=== PATIENT | male | born 1985 | race American Indian/Alaskan Native ===

== ENCOUNTER 2017-10-01 05:03 | Emergency (ER) | payer OTHER ==
[2017-10-01 06:40] LABS: Basophils # (Auto) 0.1 K/mm3 (0.0-0.1); Basophils % (Auto) 0.5 % (0.0-1.8); Eosinophils # (Auto) 0.1 K/mm3 (0.0-0.4); Eosinophils % (Auto) 0.6 % (0.0-4.3); Hematocrit 46.6 % (35.5-45.6); Hemoglobin 15.6 gm/dl (11.8-15.2); Lymphocytes # (Auto) 1.6 K/mm3 (1.2-5.4); Mean Corpuscular HGB Conc 34 % (32-34); Mean Corpuscular Hemoglobin 31 pg (28-32); Mean Corpuscular Volume 92 fl (84-94); Monocytes # (Auto) 0.5 K/mm3 (0.0-0.8); Monocytes % (Auto) 4.3 % (0.0-7.3); Platelet Count 158 K/mm3 (140-440); Red Blood Count 5.06 M/mm3 (3.65-5.03); Red Cell Distribution Width 13.4 % (13.2-15.2)
[2017-10-01 06:58] LABS: Alanine Aminotransferase 38 units/L (7-56); Albumin 4.6 g/dL (3.9-5); BUN/Creatinine Ratio 11; Blood Urea Nitrogen 11 mg/dL (9-20); Hemolysis Index 23; Lipase 23 units/L (13-60)
[2017-10-01 07:43] LABS: Bilirubin,Urine NEG (Negative); Blood,Urine NEG (Negative); Color,Urine Yellow (Yellow); Mucus,Urine FEW /HPF; Urobilinogen,Urine < 2.0 mg/dL (<2.0)
[2017-10-01] MEDS ORDERED: MORPHINE IV ONE (11:01)
[2017-10-01] MEDS ORDERED: ZOFRAN IV ONE (11:01)
[2017-10-01] MEDS ORDERED: NACL 0.9% 1000 ML 1,000 ML ONE (11:38)
[2017-10-01] MEDS ORDERED: NACL 0.9% 1000 ML 1,000 ML IV ONE (11:56)
[2017-10-01] MEDS ORDERED: REGLAN IV ONE (12:18)
[2017-10-01] MEDS ORDERED: PEPCID IV ONE (12:18)
--- NOTE | 2017-10-01 12:23 | Emergency Department Report ---
HPI - General Chief Complaint: Abdominal Pain Time Seen by Provider: 10/01/17 11:11 - HPI HPI: Room 4 The patient is a 32-year-old male presenting with a chief complaint abdominal pain. The patient states last night he ate some "blue [place] ice cream" approximately one hour later he developed midepigastric cramping pain that has been constant in nature. Patient states she's had multiple episodes of nausea vomiting in addition to diarrhea. Patient admits to subjective fever. Patient denies any recent antibiotic use. The patient states his pain was an 8-9/10 upon arrival to the ED and is currently a 5-6/10 after receiving pain medication and antiemetics. Location: Gastrointestinal system Duration: Constant since last night Quality:. Cramping Severity: [See above] Modifying factors: [see above] Context: [see above] Mode of transportation: [not driving] ED Past Medical Hx - Past Medical History Previous Medical History?: No Hx Asthma: Yes - Surgical History Past Surgical History?: Yes Additional Surgical History: L femur sx-"a matthew and 2 2015" - Family History Family history: no significant - Social History Smoking Status: Current Every Day Smoker (08/03 pack per day) Substance Use Type: Alcohol (rarely), Marijuana - Medications Home Medications: Home Medications Medication Instructions Recorded Confirmed Last Taken Type Ciprofloxacin HCl [Ciprofloxacin 500 mg PO Q12H #14 tab 10/01/17 Unknown Rx TAB] Famotidine [Pepcid] 20 mg PO BID #20 tablet 10/01/17 Unknown Rx HYDROcodone/APAP 5-325 [[place] 1 - 2 each PO Q6HR PRN #14 tablet 10/01/17 Unknown Rx 5/325] Promethazine [Phenergan TAB] 25 mg PO Q6HR PRN #20 tab 10/01/17 Unknown Rx Promethazine [Phenergan] 25 mg [place] Q6HR PRN #5 supp.rect 10/01/17 Unknown Rx ED Review of Systems ROS: Stated complaint: ABD PAIN; N/V Other details as noted in HPI Constitutional: fever Gastrointestinal: abdominal pain, nausea, vomiting, diarrhea Musculoskeletal: denies: back pain Physical Exam - Physical Exam Vital Signs: Vital Signs 10/01/17 10/01/17 05:49 05:58 Temperature 97.6 F 97.6 F Pulse Rate 58 L 59 L Respiratory 16 16 Rate Blood Pressure 182/104 182/104 O2 Sat by Pulse 100 100 Oximetry Physical Exam: GENERAL: The patient is well-developed well-nourished male lying on stretcher appearing to be in mild discomfort. [] HEENT: Normocephalic. Atraumatic. Extraocular motions are intact. Patient has moist mucous membranes. NECK: Supple. Trachea midline CHEST/LUNGS: Clear to auscultation. There is no respiratory distress noted. HEART/CARDIOVASCULAR: Regular. There is no tachycardia. There is no gallop rub or murmur. ABDOMEN: Abdomen is soft, with discomfort to palpation in the midepigastric and left upper quadrant. Patient has normal bowel sounds. There is no abdominal distention. There is no rebound or guarding SKIN: There is no rash. There is no edema. There is no diaphoresis. NEURO: The patient is awake, alert, and oriented. The patient is cooperative. The patient has normal speech MUSCULOSKELETAL: There is no evidence of acute injury. ED Course Vital Signs 10/01/17 10/01/17 05:49 05:58 Temperature 97.6 F 97.6 F Pulse Rate 58 L 59 L Respiratory 16 16 Rate Blood Pressure 182/104 182/104 O2 Sat by Pulse 100 100 Oximetry ED Medical Decision Making - Lab Data Result diagrams: 10/01/17 06:16 10/01/17 06:16 Laboratory Tests 10/01/17 10/01/17 10/01/17 06:16 06:16 07:33 WBC 11.1 H RBC 5.06 H Hgb 15.6 H Hct 46.6 H MCV 92 MCH 31 MCHC 34 RDW 13.4 Plt Count 158 Lymph % (Auto) 14.0 [place] % (Auto) 4.3 Eos % (Auto) 0.6 Baso % (Auto) 0.5 Lymph # 1.6 [place] # 0.5 Eos # 0.1 Baso # 0.1 Seg Neutrophils % 80.6 H Seg Neutrophils # 9.0 H Sodium 140 Potassium 3.6 Chloride 99.2 Carbon Dioxide 23 Anion Gap 21 BUN 11 Creatinine 1.0 Estimated GFR > 60 BUN/Creatinine Ratio 11 Glucose 109 H Calcium 10.0 Total Bilirubin 0.60 AST 26 ALT 38 Alkaline Phosphatase 71 Total Protein 8.0 Albumin 4.6 Albumin/Globulin Ratio 1.4 Lipase 23 Urine Color Yellow Urine Turbidity Clear Urine pH 9.0 H Ur Specific [place] 1.023 Urine Protein 100 mg/dl Urine Glucose (UA) Neg Urine Ketones Neg Urine Blood Neg Urine Nitrite Neg Urine Bilirubin Neg Urine Urobilinogen < 2.0 Ur Leukocyte Esterase Neg Urine WBC (Auto) 1.0 Urine RBC (Auto) 1.0 U Epithel Cells (Auto) < 1.0 Urine Mucus Few - Radiology Data Radiology results: report reviewed (CT abdomen and pelvis), image reviewed (CT abdomen and pelvis) [facility] [address] [place] [address] Cat Scan Report Signed Patient: STEVE ESTEBAN MR#: [id number] : 1985 Acct:[id number] Age/Sex: 32 / M ADM Date: 10/01/17 Loc: ED Attending Dr: Ordering Physician: LEIGH ANN SARAVIA MD Date of Service: 10/01/17 Procedure(s): CT abdomen pelvis wo con Accession Number(s): [id number] cc: LEIGH ANN ASRAVIA MD FINAL REPORT EXAM: CT ABDOMEN PELVIS WO CON HISTORY: pain TECHNIQUE: CT examination of the ABDOMEN without IV contrast CT examination of the PELVIS without IV contrast PRIORS: None. FINDINGS: A smoothly marginated hypodense left hepatic lobe lesion is nonspecific and may reflect a cyst or hemangioma. Measurements are 3.9 x 5.3 cm in the medial segment of the left hepatic lobe. Sagittal dimension is 5.9 cm. Normal noncontrast appearance of the gallbladder, adrenals, pancreas, and spleen. Normal caliber abdominal aorta and IVC. Normal-appearing kidneys and ureters. No retroperitoneal adenopathy. No evidence of mesenteric mass. Very small fat containing umbilical hernia. Normal-appearing stomach and duodenum. No small bowel distention in the abdomen and pelvis. No pelvic free fluid. Surgical hardware in the proximal left femur creates metal artifact which partly obscures the lower pelvis and limits the examination. Normal visible portion of urinary bladder, prostate, seminal vesicles, and rectum. Normal-appearing sigmoid colon. No gross ascites, free air, or colonic distention. Normal-appearing cecum, terminal ileum, and appendix. IMPRESSION: Left liver 5.9 cm lesion statistically most likely to represent a cyst or hemangioma. Given relatively large size, recommend followup liver dynamic MRI, with IV contrast if possible, to further characterize Transcribed By: BUSTER Dictated By: ELIZABETH VARGAS MD Electronically Authenticated By: ELIZABETH VARGAS MD Signed Date/Time: 10/01/171237 DD/ 37 TD/TT: 10/01/171237 - Differential Diagnosis foodborne illness, gastroenteritis, partial small bowel obstruction Critical care attestation.: If time is entered above; I have spent that time in minutes in the direct care of this critically ill patient, excluding procedure time. ED Disposition Clinical Impression: Acute gastroenteritis, Nausea vomiting and diarrhea, Abnormal CT scan, liver Disposition: - TO HOME OR SELFCARE Is pt being admited?: No Does the pt Need Aspirin: No Condition: Stable Additional Instructions: Return to the emergency department immediately should you develop worsening symptoms, fever, inability to tolerate food or liquid or any other concerns. Prescriptions: Ciprofloxacin HCl [Ciprofloxacin TAB] 500 mg PO Q12H #14 tab Famotidine [Pepcid] 20 mg PO BID #20 tablet HYDROcodone/APAP 5-325 [[place] 5/325] 1 - 2 each PO Q6HR PRN #14 tablet PRN Reason: Pain Promethazine [Phenergan TAB] 25 mg PO Q6HR PRN #20 tab PRN Reason: Nausea Promethazine [Phenergan] 25 mg [place] Q6HR PRN #5 supp.rect PRN Reason: Vomiting Referrals: PRIMARY CARE, [Primary Care Provider] - 3-5 Days SARMAD WEINSTEIN MD [Staff Physician] - 3-5 Days (Dr. Weinstein is a promotional representative. Please follow with him for further evaluation) Time of Disposition: 12:54
--- NOTE | 2017-10-01 12:42 | Cat Scan Report ---
FINAL REPORT EXAM: CT ABDOMEN PELVIS WO CON HISTORY: pain TECHNIQUE: CT examination of the ABDOMEN without IV contrast CT examination of the PELVIS without IV contrast PRIORS: None. FINDINGS: A smoothly marginated hypodense left hepatic lobe lesion is nonspecific and may reflect a cyst or hemangioma. Measurements are 3.9 x 5.3 cm in the medial segment of the left hepatic lobe. Sagittal dimension is 5.9 cm. Normal noncontrast appearance of the gallbladder, adrenals, pancreas, and spleen. Normal caliber abdominal aorta and IVC. Normal-appearing kidneys and ureters. No retroperitoneal adenopathy. No evidence of mesenteric mass. Very small fat containing umbilical hernia. Normal-appearing stomach and duodenum. No small bowel distention in the abdomen and pelvis. No pelvic free fluid. Surgical hardware in the proximal left femur creates metal artifact which partly obscures the lower pelvis and limits the examination. Normal visible portion of urinary bladder, prostate, seminal vesicles, and rectum. Normal-appearing sigmoid colon. No gross ascites, free air, or colonic distention. Normal-appearing cecum, terminal ileum, and appendix. IMPRESSION: Left liver 5.9 cm lesion statistically most likely to represent a cyst or hemangioma. Given relatively large size, recommend followup liver dynamic MRI, with IV contrast if possible, to further characterize
[2017-10-01 13:27] VITALS: BP 160/106
== END 2017-10-01 13:27 | disposition home or self-care (01) ==
LOC: ED 05:03
DX: K52.9 Noninfective gastroenteritis and colitis, unspecified (principal); F17.200 Nicotine dependence, unspecified, uncomplicated
CPT/HCPCS: 36415; 74176; 80053; 81001; 83690; 85025; 96361; 96374; 96375; 99284; J2270; J2405; J2765; J7030